=== PATIENT | female | born 1990 | race African-American/Black ===

== ENCOUNTER 2017-06-15 10:13 | Emergency (ER) | payer OTHER ==
[2017-06-15] MEDS ORDERED: Loperamide HCl 2 MG CAP ONE (11:08)
== END 2017-06-15 11:13 | disposition home or self-care (01) ==
LOC: MADERS 10:13
DX: A08.4 Viral intestinal infection, unspecified (principal); F17.210 Nicotine dependence, cigarettes, uncomplicated
CPT/HCPCS: 99283

== ENCOUNTER 2022-03-03 07:38 | Outpatient (CLI) | payer BC | END 2022-03-03 07:39 | disposition home or self-care (01) | LOC: MADULT 07:38 | PROVIDERS: ATTEND Internal Medicine Gastroenterology | DX: B18.2 Chronic viral hepatitis C (principal); N27.0 Small kidney, unilateral | CPT/HCPCS: 76700 ==

== ENCOUNTER 2022-06-03 14:53 | Emergency (ER) | payer BC | END 2022-06-03 15:55 | disposition home or self-care (01) | LOC: MADERS 14:53 | DX: K59.00 Constipation, unspecified (principal); K64.4 Residual hemorrhoidal skin tags | CPT/HCPCS: 99283 ==